=== PATIENT | female | born 1995 | race African-American/Black ===

== ENCOUNTER 2021-12-01 23:51 | Emergency (ER) | payer OTHER ==
[~2021-12-01] VITALS: Ht 160 cm; Wt 97.7 kg
[2021-12-02 01:40] VITALS: BP 134/93
[2021-12-02] MEDS ORDERED: IBUPROFEN 400 MG TABLET. PO ONE (02:30)
[2021-12-02] MEDS ORDERED: ACETAMINOPHEN 500 MG TABLET PO ONE (02:30)
[2021-12-02] MEDS ORDERED: HYDR-2759 PO (03:11)
[2021-12-02] MEDS ORDERED: IBUP-1007 PO (03:11)
--- NOTE | 2021-12-02 03:11 | PHYS DOC ---
Past Medical History Past Surgical History: No Surgical History Smoking Status: Never Smoker Alcohol Use: Occasionally Adult General Chief Complaint Chief Complaint: ANKLE PROBLEM HPI HPI 26-year-old female presenting for evaluation of right ankle discomfort and swelling after a ground-level trip and fall. Patient was rollerskating and fell down, rolling her right ankle. Denies pain anywhere else. Unable to ambulate on the affected extremity due to pain since the injury prior to arrival. Denies hitting or hurting head, neck or any other part of her body during the episode. No therapy for symptoms prior to arrival. Review of Systems Review of Systems A 12 point review of systems was completed and was negative except where noted in HPI above. Current Medications Current Medications Current Medications Medications (Trade) Dose Ordered Sig/Erlin Start Time Stop Time Status Last Admin Dose Admin Acetaminophen (Tylenol) 1,000 mg 1X ONCE 12/02/21 02:30 4 02:31 DC 12/02/21 02:53 1,000 MG Ibuprofen (Motrin) 800 mg 1X ONCE 12/02/21 02:30 12/02/21 02:31 DC 12/02/21 02:53 800 MG Allergies Allergies Allergies Coded Allergies Type Severity Reaction Last Updated Verified No Known Drug Allergies 12/02/21 No Physical Exam Physical Exam 26-year-old female appearing nontoxic and in no acute distress. Head is normocephalic and atraumatic. Neck is supple and nontender. Oropharynx is moist. Lungs are clear to auscultation at all stations. There is a normal S1 and S2 without rubs or gallops and capillary refill is appropriate, less than 2 seconds globally. Abdomen is soft, nontender nondistended. Skin is warm and dry without cyanosis, clubbing or edema. Psychiatrically, the patient demonstrates appropriate mood and affect and is alert. Evaluation of the extremities reveals BUEs and BLEs neurovascularly intact distally with strength 5 out of 5, sensation intact light touch in all nerve distributions, radial, DP and PT pulses 2+ and equal bilaterally, capillary refill less than 2 seconds, hands and feet warm and well-perfused. No dependent peripheral edema distally. No calf tenderness or swelling bilaterally. Homans test is negative bilaterally. There is moderate tenderness and swelling at the lateral malleolus of the right ankle with discomfort with ranging in all dimensions at the right ankle. No discomfort with ranging of any other joint of the right lower extremity. Current Patient Data Vital Signs Vital Signs Date Time Temp Pulse Resp B/P (MAP) Pulse Ox O2 Delivery O2 Flow Rate FiO2 12/02/21 01:40 98.3 85 14 134/93 (107) 100 Room Air 98.3 EKG EKG [] Radiology/Procedures Radiology/Procedures XR tib/fib and ankle R: Oblique fracture of the distal fibula, EP int erpretation. Formal radiology interpretation is to follow. Course & Med Decision Making Course & Med Decision Making Patient with oblique fracture of the R distal fibula. Neurovascularly intact to the extremity in question. Posterior/stirrup splint placed by nursing and patient neurovascularly intact afterwards. Pain controlled. Plan for home with crutches, nonweightbearing and close follow-up with orthopedics. Patient understands that if he feels worse instead of better or develops other new symptoms of concern that she will need to return to the emergency department immediately for reevaluation. All questions are answered. Dragon Disclaimer Dragon Disclaimer This electronic medical record was generated, in whole or in part, using a voice recognition dictation system. Departure Departure Impression: Primary Impression: Fracture of distal end of right fibula Disposition: HOME / SELF CARE / HOMELESS Condition: IMPROVED Referrals: GREGORY QUARLES MD Patient Instructions: Fibular Fracture, Ankle, Adult, Treated with or without Immobilization Additional Instructions: Follow-up very closely with Dr. Gregory Quarles of orthopedics in the office in the next 2 to 4 days for reevaluation of your symptoms and discussion of next best steps in care. Call later today to make an appointment at the telephone number provided and let the online content coordinator know this is an ER follow-up and you need to be worked in for a close follow-up appointment. Drink plenty of fluids. Rest, ice and elevate. Keep your splint clean and dry (you may shower but put a plastic bag over the splint to keep it dry). Nonweightbearing with the affected leg until cleared to resume weightbearing by the orthopedic doctor. Use the crutches to stay off the leg in question. Take a 600 mg ibuprofen pill every 6 hours as needed for discomfort. For pain not well controlled with ibuprofen you may take a [place] pill every 6 hours as needed. Be careful because [place] can make you sleepy so no drive or work or operate machinery while taking it. Return to the emergency department right away for worsening symptoms of any kind or with any other new symptoms of concern. Scripts Hydrocodone/Acetaminophen (Hydrocodone-Acetamin 5-325 mg) 1 Each Tablet 1 EACH PO Q6H PRN for breakthrough pain, #11 TAB Prov: LUISANA ARRIETA MD 12/02/21 Ibuprofen (IBUPROFEN) 600 Mg Tablet 600 MG PO PRN Q6HRS PRN for PAIN, #40 TAB take with food or milk Prov: LUISANA ARRIETA MD 12/02/21 Problem Qualifiers Primary Impression: Fracture of distal end of right fibula Encounter type: initial encounter Fracture type: closed Fracture morphology: other fracture Qualified Codes: S82.831A - Other fracture of upper and lower end of right fibula, initial encounter for closed fracture LUISANA ARRIETA MD Dec 02, 2021 03:11
--- NOTE | 2021-12-02 03:27 | RAD ---
EXAM: 3 views of the right ankle 3 views right tibia/fibula DATE: 12/02/2021 2:15 AM INDICATION: Reason: injury, pain / Spl. Instructions: / History: COMPARISON: No Prior FINDINGS: Oblique fracture distal fibular diametaphysis. Moderate soft tissue swelling overlying the lateral ma lleolus. Ankle mortise is congruent. Talar dome is intact. Joint spaces are preserved without significant degenerative/proliferative change. IMPRESSION: Oblique fracture distal fibular diametaphysis Electronically signed by: Eris Leyva MD (12/02/2021 3:24 AM) JIE
[2021-12-02] MEDS ORDERED: HYDROcodone/APAP 5/325MG 1 TAB TABLET PO ONE (03:30)
== END 2021-12-02 03:30 | disposition home or self-care (01) ==
LOC: ER 23:51
DX: S82.831A Other fracture of upper and lower end of right fibula, initial encounter for closed fracture (principal); W01.0XXA Fall on same level from slipping, tripping and stumbling without subsequent striking against object, initial encounter; Y93.51 Activity, roller skating (inline) and skateboarding; Y92.89 Other specified places as the place of occurrence of the external cause; Y99.8 Other external cause status
CPT/HCPCS: 29505; 73590; 73610; 99284